=== PATIENT | female | born 1980 | race Caucasian/White ===

== ENCOUNTER 2016-10-06 03:55 | Inpatient (IN) ==
[2016-10-06] MEDS ORDERED: LR 1,000 ML ONE ×3 (08:03→13:37)
[2016-10-06] MEDS ORDERED: PEPCID ONE (08:20)
[2016-10-06 08:24] LABS: HEMATOCRIT 43.9 % (37.0-47.0); HEMOGLOBIN 14.8 g/dL (12.0-16.0); MCH 30.6 PG (27-31); MCHC 33.7 g/dL (33-37); MCV 90.9 FL (81-99); MPV 9.1 FL (7.4-10.4); RBC 4.83 XMIL (4.2-5.4)
--- NOTE | 2016-10-06 08:24 | EKG Report ---
Test Performed on : 10/06/2016 07:58:44 AM Test Reason : preop Blood Pressure : / mmHG Vent. Rate : 075 BPM Atrial Rate : 075 BPM P-R Int : 148 ms QRS Dur : 100 ms QT Int : 408 ms P-R-T Axes : 061 053 030 degrees QTc Int : 455 ms Normal sinus rhythm. Normal ECG No previous ECGs available Confirmed by Vickey Spencer MD ([id number]) on 10/06/2016 9:08:47 AM
[2016-10-06 08:59] LABS: AGAP 19; BUN 17 mg/dL (8-22); CALCIUM 9.1 mg/dL (8.8-10.2); CHLORIDE 97 mmol/L (98-107); COSMO 282; POTASSIUM 4.7 mmol/L (3.5-5.1); SODIUM 138 mmol/L (136-145); TCO2 22 mmol/L (25-35)
[2016-10-06] MEDS ORDERED: KEFZOL 2 GM/D5W 2 GM/50 ML IVPB ONE (09:02)
[2016-10-06] MEDS ORDERED: FENTANYL ONE (10:48)
[2016-10-06] MEDS ORDERED: DIPRIVAN 1% ONE (10:48)
[2016-10-06] MEDS ORDERED: NS 1,000 ML ONE (11:20)
[2016-10-06] MEDS ORDERED: ZOFRAN IV PRN (13:03)
[2016-10-06] MEDS ORDERED: PERICOLACE PO PRN (13:03)
[2016-10-06] MEDS: NS 1,000 ML IV SCH (13:09)
[2016-10-06] MEDS ORDERED: NEOSTIGMINE ONE (13:36)
[2016-10-06] MEDS ORDERED: XYLOCAINE-MPF 2% ONE (13:37)
[2016-10-06] MEDS ORDERED: ZEMURON ONE (13:37)
[2016-10-06] MEDS ORDERED: ANESTHESIA PB SET 88 IN 5742 ONE (13:37)
[2016-10-06] MEDS ORDERED: ROBINUL ONE (13:37)
[2016-10-06] MEDS ORDERED: QUELICIN (DOSE) ONE (13:37)
[2016-10-06] MEDS ORDERED: ZOFRAN ONE (13:37)
[2016-10-06] MEDS ORDERED: VANCOMYCIN IV PER PHARMACY MISC SCH (13:45)
[2016-10-06] MEDS: GLUCOTROL PO SCH ×2 (14:02→14:03)
[2016-10-06] MEDS: MORPHINE IV PRN ×2 (14:07→19:33)
[2016-10-06] MEDS: ZOSYN 3.375 GM/NS 3.375 GM/50 ML IVPB IV SCH ×2 (14:09→22:16)
[2016-10-06 14:13] LABS: HDL 45 mg/dL (45-65); LDL 106 mg/dL; TRIGLYCERIDES 57 mg/dL (35-135); VLDL 11 mg/dL
[2016-10-06 14:14] LABS: HEMOGLOBIN A1C 8.1 % (4.8-6.0)
[2016-10-06 14:48] LABS: TOTAL BILIRUBIN 0.14 mg/dL (0.20-1.00); TOTAL PROTEIN 8.3 g/dL (6.3-8.3)
[2016-10-06] MEDS ORDERED: VANCOMYCIN 2,100 MG in NS 500 ML IV ONE (15:00)
[2016-10-06] MEDS: OXY IR PO PRN ×2 (15:30→18:41)
--- NOTE | 2016-10-06 15:41 | OPERATIVE NOTE ---
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 PROCEDURE: 1. Right transmetatarsal revision amputation. 2. Right irrigation, debridement to bone. SURGEON: Gerardo Kendrick MD RAG GRADER: SUBHA Rajput ANESTHESIA: General with LMA. IMPLANTS: None. TOURNIQUET TIME: Around 45 minutes. SPECIMENS: Multiple cultures were obtained and sent off to Pathology and for culture. WOUND CLOSURE: Wound VAC was placed. DISPOSITION: To PACU, hemodynamically stable. INDICATION FOR PROCEDURE: Ms. Gann, 35-year-old female, who I first saw this past in [facility]. She had a transmetatarsal amputation at another facility [place] a different state. She came in here. She is about a month out from her procedure. It started to drain, started to get very red on her as well and she was placed on Keflex by her physician who performed the procedure. Then since she moved out of state, she was seeking treatment here. So I discussed with her that I think it was very infected and so I would recommend at that time irrigation and debridement and a little bit of revision of the amputation with debridement of the skin and possibly even resection of some more of the bones. After I went over everything with her, she wanted to go ahead and proceed with surgery. DESCRIPTION OF PROCEDURE: Ms. Gann was identified in the preop holding area. The right foot was marked as the correct surgical site. She was then wheeled to the operating room, placed supine on the operating table. All bony prominences were well padded. She was induced under general anesthesia. LMA was placed. Tourniquet placed to the right thigh. Right lower extremity was then prepped with Betadine scrub and draped in normal sterile fashion. Surgical pause was performed. We identified the correct patient, the correct side, and the correct procedure. Preop antibiotics were given, which was IV Ancef. The leg was elevated a little bit to allow exsanguination and then tourniquet inflated to 300 mmHg. Total tourniquet time was around 45 minutes. I removed all of the sutures out of the foot. There was a tract right in the very center that did open up all the way to bone and it looked like it actually went into more of the 2nd metatarsal. So I opened up almost all of the incision and used a big curette and curetted a lot of the devitalized tissue out. There was not any abscess seen at all and then used a rongeur and cleaned up a lot of the tissue with the rongeur as well. The lateral metatarsals looked like they had begin the already scar together and so I did debride some of the ends of those with a rongeur and resect just a little bit of bone from the 3rd, 4th, 5th, not a lot. The 2nd though, looked like it had a little more devitalized tissue around and so took a good bit more of the 2nd metatarsal back and I sent it off to Pathology and for culture. We took cultures deep in the wound as well at that time and sent some all for tissue culture as well. The 1st metatarsal debrided it back some and then there were 2 small open areas medially. I took the curette and debrided those out and then used a rongeur as well. We then assessed our debridement. At this point, all tissue actually looked very vital. I did not really see any devitalized tissue at this point, because we had taken the skin, subcutaneous, some muscle, and bone as well, really almost doing a revision transmetatarsal amputation. I then irrigated everything copiously with normal saline until everything was nice and clean appearing. After this, I used 2 nylon and approximated a little bit of the skin edges. We left a little bit of an open more on the medial aspect and then we used a wound VAC and I ended using the sponge and put it down in that medial part to keep that area open so that it could granulate from the inside out. I then used a little bit of an incisional VAC over the rest of the wound however, I hooked it to suction and we had a good seal. Then a soft roll and Bossman were then placed. Tourniquet was let down. The patient had good capillary refill good at the edge of the wound. We did have a lot of bleeding coming out of the wound VAC either. She was then awoken from general anesthesia, moved to her own bed and taken to the PACU in stable condition. Postop, get Infectious Disease involved. I am going to consult the hospitalist as well for glucose management since her A1c has been around and she will be kept on IV Ancef and we will follow her cultures until she grows something out and we can change antibiotics at that point. cc: Gerardo Kendrick MD
[2016-10-06] MEDS ORDERED: INSULIN PEN NEEDLES ONE (15:58)
[2016-10-06] MEDS ORDERED: GLUCOPHAGE PO SCH (17:00)
[2016-10-06] MEDS: NICODERM PATCH TD SCH (17:40)
[2016-10-06] MEDS: ATIVAN PO SCH (17:43)
[2016-10-06] MEDS: HUMALOG SUBQ SCH ×2 (17:44→22:22)
[2016-10-06] MEDS: NEURONTIN PO SCH (17:44)
[2016-10-06] MEDS: KEFZOL 1 GM/D5W 1 GM/50 ML IVPB IV SCH (17:45)
[2016-10-06] MEDS ORDERED: PNEUMOVAX 23 IM ONE (19:15)
--- NOTE | 2016-10-06 21:22 | CONSULTATION ---
DATE OF CONSULTATION: 10/06/2016 REFERRING PHYSICIAN: Gerardo Kendrick MD CONSULTING PHYSICIAN: Wil Willis MD CONSULTING REASON: Medical management. CHIEF COMPLAINT: Right foot pain. HISTORY OF PRESENT ILLNESS: Ms. Gnan is a 35-year-old, female with a history of poorly controlled diabetes mellitus, obesity, hyperlipidemia and diabetic neuropathy who was admitted for incision and drainage/debridement of right foot diabetic ulcer by Dr. Kendrick. Surgery was performed today without any complication. She is currently resting in bed, complaining of some mild incisional pain. Otherwise, she denies any acute complaints. Prior to surgery she has had no chest pain or shortness of breath. No lower extremity edema. We have been asked to follow along for medical management. PAST MEDICAL HISTORY: 1. Poorly controlled diabetes. 2. Diabetic neuropathy. 3. Bipolar disorder. 4. Paranoid schizophrenia. 5. Chronic pain. 6. Hyperlipidemia. SURGICAL HISTORY: Amputation of the great toe of the right foot, cholecystectomy, partial hysterectomy. SOCIAL HISTORY: Patient smokes a pack a day. She has recently moved back to [place] from [place]. She is and has 2 children. FAMILY HISTORY: Mother with congestive heart failure. Father is still living. He has a history of severe coronary disease. REVIEW OF SYSTEMS: Fourteen-point review of systems obtained and found to be negative with the exception of the HPI. HOME MEDICATIONS: Neurontin 600 mg p.o. t.i.d., glipizide 5 mg daily, Lantus 15 units at bedtime, Ativan 1 mg t.i.d., Glucophage 1000 mg t.i.d., Actos 15 mg daily, Zocor 20 mg at bedtime, Desyrel 300 mg p.o. at bedtime, Geodon 40 mg p.o. b.i.d. ALLERGIES: Zofran and tramadol. PHYSICAL EXAMINATION: Vital Signs: Blood pressure is 130/72, heart rate 77, respiratory rate 18, O2 saturation 100% on 2 L. Temperature is 98 degrees. General: This is an obese female, lying in hospital bed in no acute distress. Neurologic: The patient is awake, alert, and oriented. She follows commands without focal deficits. HEENT: Head is atraumatic, normocephalic. Pupils equal, round, reactive to light. Oral mucosa is moist. Trachea is midline. No JVD. No carotid bruits. Chest: Clear to auscultation bilaterally. CARDIOVASCULAR: Regular rate and rhythm. S1-S2 is noted. No murmurs, gallops, clicks, rubs. GI: Soft, nondistended, nontender. Bowel sounds positive. Extremities: Right lower extremity with surgical dressing, clean, dry and intact with wound VAC functioning properly. Left lower extremity without edema, clubbing or cyanosis. Pulses are palpable bilaterally. DIAGNOSTIC DATA: WBC 13.36, hemoglobin 14.8, hematocrit 43.9, platelet count 443,000. Sodium 138, potassium 4.7, chloride 97, CO2 22, anion gap 19, BUN 17, creatinine 0.7, glucose 191, hemoglobin A1c 8.1, TSH 6.79. ASSESSMENT AND PLAN: 1. Right foot diabetic ulcer: Per Dr. Kendrick and his team, we have ordered blood cultures and lactic acid as well as started broad-spectrum antibiotics. He has consulted Dr. Montes as well. We will also make sure she is on IV fluids. 2. Early sepsis: We will obtain blood cultures, surgical wound cultures have been obtained. We have started vancomycin and Zosyn. Dr. Montes has been consulted. We are checking lactic acid as well. 3. Diabetes mellitus: Hemoglobin A1c reveals poor control. We will stop her metformin for now. Add pattern blood sugars and sliding scale insulin. Continue her Lantus at night and monitor her blood sugars, continue diabetic education. 4. Nicotine dependence: We have advised the patient to quit smoking. We will write a nicotine patch and continue daily cessation education. 5. Deep venous thrombosis prophylaxis is being provided with Lovenox. Further recommendations to follow. Would like to thank you for this consultation. We will continue to follow along with you. Dictated by TITA Stevens for Wil Willis MD cc: TITA Stevens MD Justin Daigre, MD
[2016-10-06] MEDS: GEODON PO SCH (22:17)
[2016-10-06] MEDS: PERIDEX MT SCH (22:17)
[2016-10-06] MEDS: DESYREL PO SCH (22:17)
[2016-10-06] MEDS: ZOCOR PO SCH (22:18)
[2016-10-06] MEDS: LANTUS SUBQ SCH (22:23)
[2016-10-06] MEDS: PHENERGAN IV PRN (22:29)
--- NOTE | 2016-10-06 22:44 | CONSULTATION ---
DATE OF CONSULTATION: 10/06/2016 CONCLUSION: The patient is status post revision of an infected right transmetatarsal amputation. At surgery, there was found to be evidence of osteomyelitis. Gram stain taken at surgery shows gram positive cocci in the infected area. RECOMMENDATIONS: I agree with putting the patient on vancomycin and Zosyn, pending culture results. DISCUSSION: The patient told me that she had a right transmetatarsal amputation performed somewhere else. The wound became infected, manifested by pain, erythema, swelling and purulent drainage. She underwent surgery on that foot today, by Dr. Kendrick. The patient's laboratory studies show a CBC with a white count of 13,360, hemoglobin 14.8, and platelet count 443,000. Creatinine is 0.7. GFR is greater than 60. The liver function tests are normal, except for an alkaline phosphatase, which is slightly elevated at 129. PAST MEDICAL HISTORY/REVIEW OF SYSTEMS: Eyes and ears: The patient wears glasses. Her hearing is normal. Neck: No stiffness. Respiratory: No cough or shortness of breath. GI: No nausea, vomiting, or diarrhea. cardiovascular: No chest pain or palpations. Endocrine: The patient has diabetes but not thyroid disease. Neurologic: The patient does not have any motor or sensory loss. She is not having any seizures. Genitourinary: No dysuria or flank pain. Integument: No rashes. The remainder of the patient's review of systems was completed and was negative. FAMILY LAW ATTORNEY HISTORY: She is a 7, para 4, AB 3. She has had a hysterectomy. PREVIOUS HOSPITALIZATIONS AND OPERATIONS: She has had labor and deliveries, 3 miscarriages, and a hysterectomy, as well as, a cholecystectomy. MEDICAL DISEASES: Positive for diabetes mellitus, obesity and hyperlipidemia. INFECTIOUS DISEASE HISTORY: Positive for UTI. Negative for pneumonia. FAMILY HISTORY: Positive for diabetes mellitus, hypertension, myocardial infarction. SOCIAL HISTORY: [place] She smoke cigarettes. She does not drink alcohol or abuse drugs. She is single. She does not have any pets. She does not have a job. ALLERGIES: She has an allergy to ondansetron and tramadol. HOME MEDICATIONS: Include the following: Insulin, glipizide, gabapentin, Geodon, Actos, Glucophage, lorazepam, Desyrel and Zocor. PHYSICAL EXAMINATION: Vital Signs: Temperature is 98, pulse 77, respirations 18, blood pressure 130/72. Patient weighs 211 pounds. General: This is an obese, young female. She is in no acute distress. Head, eyes, ears, nose, and throat: She can hear my spoken words and see near objects. No drainage noted from the nose or ears. Neck: No meningismus. Lungs: Clear to auscultation. Cardiovascular: Regular heart rate. Abdomen: Soft and nontender. Extremities: The patient had edema in both legs. There was a large dressing around the right foot. The dressing was intact. Neurologic: Patient is alert. She can move her extremities. There is no tremor. Her sensation is intact to touch. Her memory, as regarding her medical history, is intact. Thank you for the consult. cc: MD Gerardo Nichols MD
[2016-10-07] MEDS: MORPHINE IV PRN ×4 (01:04→18:10)
[2016-10-07] MEDS: KEFZOL 1 GM/D5W 1 GM/50 ML IVPB IV SCH (01:09)
[2016-10-07] MEDS: VANCOMYCIN 1,750 MG in NS 250 ML IV SCH ×2 (02:51→15:28)
[2016-10-07] MEDS: NS 1,000 ML IV SCH ×2 (02:57→17:27)
[2016-10-07] MEDS: PHENERGAN IV PRN ×3 (06:16→21:34)
[2016-10-07 06:17] LABS: INR 0.96
[2016-10-07] MEDS: LOVENOX SUBQ SCH (06:20)
[2016-10-07] MEDS: HUMALOG SUBQ SCH ×4 (06:21→21:35)
[2016-10-07] MEDS: ZOSYN 3.375 GM/NS 3.375 GM/50 ML IVPB IV SCH ×3 (06:25→17:03)
[2016-10-07 06:36] LABS: AGAP 10; BUN 13 mg/dL (8-22); CALCIUM 7.6 mg/dL (8.8-10.2); CHLORIDE 103 mmol/L (98-107); COSMO 281; POTASSIUM 4.2 mmol/L (3.5-5.1); SODIUM 139 mmol/L (136-145); TCO2 26 mmol/L (25-35)
[2016-10-07 06:46] LABS: HEMATOCRIT 34.8 % (37.0-47.0); HEMOGLOBIN 11.4 g/dL (12.0-16.0); MCH 30.8 PG (27-31); MCHC 32.8 g/dL (33-37); MCV 94.1 FL (81-99); MPV 9.2 FL (7.4-10.4); RBC 3.7 XMIL (4.2-5.4)
[2016-10-07] MEDS: NEURONTIN PO SCH ×3 (08:12→17:03)
[2016-10-07] MEDS: GLUCOTROL PO SCH (08:12)
[2016-10-07] MEDS: NICODERM PATCH TD SCH (08:12)
[2016-10-07] MEDS: ACTOS PO SCH (08:12)
[2016-10-07] MEDS: PERIDEX MT SCH ×2 (08:12→21:33)
[2016-10-07] MEDS: ATIVAN PO SCH ×3 (08:12→17:03)
[2016-10-07] MEDS: GEODON PO SCH ×2 (08:14→21:34)
[2016-10-07] MEDS ORDERED: NS 250 ML ONE (08:47)
[2016-10-07] MEDS ORDERED: INSULIN ASPART 15 UNIT SQ SCH (09:00)
--- NOTE | 2016-10-07 10:30 | PROGRESS NOTE ---
DATE: 10/07/2016 SUBJECTIVE: The patient is status post revision of an infected right transmetatarsal amputation with infection spreading to the bone and causing osteomyelitis. Thus, cultures are pending. MEDICATIONS: The patient is on vancomycin and Zosyn pending culture results. PHYSICAL EXAMINATION: Vital Signs: Temperature is 98.7 degrees, pulse 81, respirations 16, blood pressure 103/51. General: This is an obese young female. She is in no acute distress. She is having some pain from her right foot, but for the most part it is relieved with medication. Lungs: Clear to auscultation. Cardiovascular: Regular heart rate. Abdomen: Soft and nontender. Extremities: Patient has a large dressing around the right foot. The dressing is intact. LAB AND X-RAY: See dictation done on 11;17 AM. ASSESSMENT AND PLAN: The patient has an infection of her foot. I plan to continue with her current antibiotics pending culture results. Also, I am going to hold off putting in a PICC for the same reason that we do not have the final culture result. COMORBIDITIES: The patient's comorbidities include diabetes mellitus and obesity. cc: MD Gerardo Nichols MD MTDD
[2016-10-07] MEDS ORDERED: KEFZOL 1 GM/D5W 1 GM/50 ML IVPB IV SCH (12:45)
--- NOTE | 2016-10-07 14:09 | PROGRESS NOTE ---
DATE: 10/07/2016 SUBJECTIVE: Ms. Gann is lying in bed this morning doing okay. Not really complaining of a lot of pain. She is postop day 1 from right transmetatarsal amputation revision and irrigation and debridement. OBJECTIVE: Right lower extremity exam. Wound VAC still intact. Dressing is clean, dry, and intact. There had not been a lot of output from the wound VAC. ASSESSMENT: Status post right transmetatarsal amputation revision and irrigation and debridement to bone. PLAN: We got Infectious Disease team consulted. The patient is on vancomycin and Zosyn right now. Hospitalist team is involved as well and we are going to tailor antibiotics depending on what all the cultures come back and show, so we are still following those right now. We will probably change the wound VAC on and take a look at the wound. cc: Gerardo Kendrick MD
[2016-10-07] MEDS: SODIUM CHLORIDE 0.9% INJ PRN ×2 (16:08→21:34)
[2016-10-07] MEDS: OXY IR PO PRN (16:09)
--- NOTE | 2016-10-07 16:45 | PROGRESS NOTE ---
DATE: 10/07/2016 SUBJECTIVE: The patient says that she is feeling better. She is complaining of generalized weakness. Her right foot is covered with a dressing and has a wound VAC. She is complaining of right lower extremity pain. OBJECTIVE: Vital Signs: Temperature 97.7 degrees, pulse 79, respiratory rate 20, blood pressure 112/64, oxygen saturation 100% on room air. HEENT: Head normocephalic. No trauma. PERRLA. Neck supple. No JVD. No masses. Central trachea. Chest clear to auscultation. No wheezing. No rales. Cardiovascular: RRR. No murmurs. Abdomen is soft, nontender, nondistended. No hepatosplenomegaly. Obese. Extremities: No edema. No clubbing. Right lower extremity with a surgical dressing that looks clean and wound VAC functioning properly. LABORATORY: WBC 10.2, hemoglobin 11.4, hematocrit 34.8, platelets 349,000. Sodium 139, potassium 4.2, chloride 103, bicarbonate 26. BUN 13, creatinine 0.7, glucose 165. Calcium 7.6. ASSESSMENT AND PLAN: 1. Right side diabetic foot, status post right transmetatarsal amputation, revision, and irrigation and debridement to bone. Continue with the same antibiotics. Infectious disease department is following this patient. We have a positive result for gram-positive cocci pending sensitivity. We will continue to monitor. 2. Type 2 diabetes, that is poor control. Her hemoglobin A1c is 8.1. Her sugar in house has been stable. We will continue with the same management. 3. Nicotine dependence. We have advised the patient to quit smoking. I will continue with daily cessation education and nicotine patch. 4. Deep venous thrombosis prophylaxis. Continue with Lovenox. 5. Bipolar disorder and paranoid schizophrenia, aware. Continue monitoring and treatment. cc: MD Gerardo Amador MD
[2016-10-07] MEDS: DESYREL PO SCH (21:33)
[2016-10-07] MEDS: LANTUS SUBQ SCH (21:34)
[2016-10-07] MEDS: ZOCOR PO SCH (21:34)
[2016-10-08] MEDS: ZOSYN 3.375 GM/NS 3.375 GM/50 ML IVPB IV SCH ×3 (01:07→11:37)
[2016-10-08] MEDS: MORPHINE IV PRN ×6 (01:52→20:17)
[2016-10-08] MEDS: VANCOMYCIN 1,750 MG in NS 250 ML IV SCH ×2 (01:52→04:24)
[2016-10-08] MEDS: PHENERGAN IV PRN ×3 (05:05→20:17)
[2016-10-08] MEDS: SODIUM CHLORIDE 0.9% INJ PRN ×2 (05:05→13:36)
[2016-10-08] MEDS: LOVENOX SUBQ SCH (05:06)
[2016-10-08] MEDS: OXY IR PO PRN ×2 (05:06→17:31)
[2016-10-08] MEDS: NS 1,000 ML IV SCH (05:06)
[2016-10-08] MEDS: HUMALOG SUBQ SCH ×4 (06:12→22:18)
--- NOTE | 2016-10-08 08:20 | PROGRESS NOTE ---
DATE: 10/08/2016 SUBJECTIVE: Ms. Gann is postop day 2 from an irrigation and debridement of the right foot wound and revision transmetatarsal amputation. She is resting in bed this morning fairly well. Not a lot of drainage out from the wound VAC overnight. OBJECTIVE: Right Lower Extremity Examination: Dressing is clean, dry, and intact. Wound VAC is intact as well. ASSESSMENT: 1. Right transmetatarsal amputation revision. 2. Right incision and drainage of foot. PLAN: Ms. Gann grew out MRSA from her wounds. Infectious disease is on board and will help tailor antibiotics. It looks like she has already got a PICC line established as well. We will plan on changing the wound VAC tomorrow and take a look at the wound, and see how everything is responding. cc: MD Manish Pierce MD
[2016-10-08 08:43] LABS: AGAP 9; BUN 11 mg/dL (8-22); CALCIUM 7.8 mg/dL (8.8-10.2); CHLORIDE 104 mmol/L (98-107); COSMO 277; POTASSIUM 3.9 mmol/L (3.5-5.1); SODIUM 138 mmol/L (136-145); TCO2 25 mmol/L (25-35)
[2016-10-08 08:50] LABS: HEMATOCRIT 33.8 % (37.0-47.0); HEMOGLOBIN 11.3 g/dL (12.0-16.0); MCH 30.9 PG (27-31); MCHC 33.4 g/dL (33-37); MCV 92.3 FL (81-99); MPV 9.4 FL (7.4-10.4); RBC 3.66 XMIL (4.2-5.4)
[2016-10-08] MEDS: PERIDEX MT SCH ×2 (09:05→20:17)
[2016-10-08] MEDS: NICODERM PATCH TD SCH (09:05)
[2016-10-08] MEDS: GLUCOTROL PO SCH (09:05)
[2016-10-08] MEDS: ATIVAN PO SCH ×3 (09:05→22:17)
[2016-10-08] MEDS: ACTOS PO SCH (09:05)
[2016-10-08] MEDS: NEURONTIN PO SCH ×3 (09:05→20:17)
[2016-10-08] MEDS: GEODON PO SCH ×2 (09:05→20:17)
--- NOTE | 2016-10-08 12:16 | PROGRESS NOTE ---
DATE: 10/08/2016 SUBJECTIVE: This patient states that she is feeling better, but she is complaining about pain. Her right foot is covered with a surgical dressing and has a wound VAC. She denies nausea or vomiting. No diarrhea. No constipation. No chest pain. No shortness of breath. OBJECTIVE: Vital Signs: Temperature 98.0 degrees, pulse 69, respiratory rate 20, blood pressure 127/73, and oxygen saturation 98% on room air. HEENT: Head normocephalic. No trauma. PERRLA. Neck: Supple. No JVD. No masses. Central trachea. Chest: Clear to auscultation. No wheezing. No rales. Abdomen: Soft, nontender, nondistended. No hepatosplenomegaly. Obese. Cardiovascular: RRR. No murmurs. Extremities: No edema. No clubbing. Right lower extremity with a surgical dressing that looks clean, and wound VAC functioning properly. LABORATORY: WBC 8.3, hemoglobin 11.3, hematocrit 33.8, platelets 343,000. Sodium 138, potassium 3.9, chloride 104, bicarbonate 25, BUN 11, creatinine 0.6, glucose 132, calcium 7.8, magnesium 1.6. ASSESSMENT AND PLAN: 1. Right side diabetic foot status post right transmetatarsal amputation, revision, irrigation, and debridement to bone. Continue with the same medications. She has a positive culture that showed Methicillin-resistant Staphylococcus Methicillin-resistant Staphylococcus aureus. She is on vancomycin. Infectious Disease Department is following this patient. 2. Type 2 diabetes. Continue with the same management. The blood sugar has been under control. 3. Nicotine dependence. This patient has been highly advised against tobacco abuse. I will continue with daily cessation education. 4. Bipolar disorder and paranoid schizophrenia. Aware. Continue monitoring and treatment. cc: Manish Bose MD
--- NOTE | 2016-10-08 14:13 | PROGRESS NOTE ---
DATE: 10/07/2016 ADDENDUM: LABORATORY DATA AND X-RAY: Today, the patient's CBC shows a white count of 10,280. Hemoglobin 11.4 and platelet count of 349,000. Patient's creatinine is 0.7. The GFR is greater than 60. The cultures taken yesterday by Dr. Kendrick are growing gram positive cocci which has not been identified as of yet. There is no new radiographic study. cc: MD Gerardo Nichols MD
--- NOTE | 2016-10-08 16:00 | PROGRESS NOTE ---
DATE: 10/08/2016 PRESENT ILLNESS: The patient is status post revision of an infected right transmetatarsal amputation. The infection did spread to bone causing osteomyelitis. The cultures taken from the foot are growing methicillin-resistant Staph aureus, and another one is growing gram-positive cocci which I think will almost certainly be identified as the same organism, i.e. methicillin-resistant Staph aureus. MEDICATIONS: The patient is on vancomycin and Zosyn. PHYSICAL EXAMINATION: Vital Signs: Temperature is 98 degrees, pulse 69, respirations 20, blood pressure 127/73. General: This is an obese, young female, who is in no acute distress. Lungs: Clear to auscultation. Cardiovascular: Regular heart rate. Abdomen: Soft and nontender. Extremities: The patient has the same dressing around her right foot. She has a VAC in place. Tomorrow it is my understanding the dressing will be changed. The right arm has a PICC in it. The PICC site is not swollen. The patient's right foot is as mentioned above. LAB AND X-RAY: Today the patient's CBC showed a white count of 8320, hemoglobin 11.3, and platelet count 343,000. Creatinine is 0.6. GFR is greater than 60. A culture from the right foot grew methicillin-resistant Staph aureus, and another culture is growing a gram-positive coccus that almost certainly will be identified as the same organism, namely methicillin-resistant Staph aureus. DISPOSITION: The patient already has a PICC in. I plan today to consult [facility] to supply the patient's home IV antibiotic. I will be seeing the patient back in my office in 4 weeks and then again at 8 weeks, at which time we will stop her antibiotics. COMORBIDITY: Diabetes mellitus cc: MD Manish Nichols MD MTDD
[2016-10-08] MEDS: VANCOMYCIN 1,900 MG in NS 500 ML IV SCH (16:52)
[2016-10-08] MEDS: DESYREL PO SCH (20:16)
[2016-10-08] MEDS: ZOCOR PO SCH (20:16)
[2016-10-08] MEDS: LANTUS SUBQ SCH (22:17)
[2016-10-09] MEDS: VANCOMYCIN 1,900 MG in NS 500 ML IV SCH ×2 (03:32→18:19)
[2016-10-09] MEDS: PHENERGAN IV PRN ×4 (03:56→23:49)
[2016-10-09] MEDS: MORPHINE IV PRN ×5 (03:56→23:50)
[2016-10-09] MEDS: LOVENOX SUBQ SCH (05:23)
[2016-10-09] MEDS: HUMALOG SUBQ SCH ×4 (06:01→23:44)
[2016-10-09 07:48] LABS: MANUAL DIFF NEEDED? NO
[2016-10-09 07:54] LABS: BASO% 0.4 % (0.0-0.8); EOS# 0.26 X1000 (0.0-0.7); EOS% 3.5 % (0.0-10.0); HEMATOCRIT 34.6 % (37.0-47.0); HEMOGLOBIN 11.4 g/dL (12.0-16.0); IMM GRAN# 0.03 X1000 (0.0-0.04); IMM GRAN% 0.4 % (0.0-0.5); LYMPH# 1.58 X1000 (1.2-3.4); MCH 30.7 PG (27-31); MCHC 32.9 g/dL (33-37); MCV 93.3 FL (81-99); MONO# 0.63 X1000 (0.11-0.59); MONO% 8.4 % (1.7-9.3); MPV 9.4 FL (7.4-10.4); NEUT% 66.3 % (42.2-75.2); PLT 332 X1000 (130-400); RBC 3.71 XMIL (4.2-5.4)
[2016-10-09 09:16] LABS: AGAP 13; BUN 18 mg/dL (8-22); CHLORIDE 102 mmol/L (98-107); COSMO 285; POTASSIUM 4.3 mmol/L (3.5-5.1); SODIUM 140 mmol/L (136-145); TCO2 25 mmol/L (25-35)
[2016-10-09] MEDS: NICODERM PATCH TD SCH (10:25)
[2016-10-09] MEDS: OXY IR PO PRN ×2 (10:25→13:17)
[2016-10-09] MEDS: ACTOS PO SCH (10:25)
[2016-10-09] MEDS: ATIVAN PO SCH ×3 (10:25→18:19)
[2016-10-09] MEDS: GEODON PO SCH ×2 (10:25→23:47)
[2016-10-09] MEDS: GLUCOTROL PO SCH (10:25)
[2016-10-09] MEDS: PERIDEX MT SCH ×2 (10:25→23:49)
[2016-10-09] MEDS: NEURONTIN PO SCH ×3 (10:25→18:19)
[2016-10-09] MEDS: SODIUM CHLORIDE 0.9% INJ PRN ×2 (11:09→17:09)
--- NOTE | 2016-10-09 14:57 | PROGRESS NOTE ---
DATE: 10/09/2016 PRESENT ILLNESS: The patient is status post revision of an infected right transmetatarsal amputation. Cultures taken from the foot are growing methicillin-resistant Staphylococcus aureus and, in addition, Serratia marcescens has been isolated from the foot also. MEDICATIONS: The patient currently is on vancomycin. PHYSICAL EXAMINATION: Vital Signs: Temperature is 97.6 degrees, pulse 79, respirations 20, blood pressure 122/67. General: This is an obese, young female. She is in no acute distress. Lungs: Clear to auscultation. Cardiovascular: Regular heart rate. Abdomen: Soft and nontender. Extremities: The right foot has a VAC on it. This was changed earlier. The nurse told me that the tissues appeared pink and were not purulent or necrotic. The patient has a PICC in her right arm. The PICC site is not erythematous or swollen. LABORATORY AND X-RAY: The patient's CBC for today shows a white count of 7510, hemoglobin 11.4, and platelet count 332,000. Creatinine is 0.7. GFR is greater than 60. The culture from the foot grew methicillin-resistant Staphylococcus aureus and Serratia marcescens. ASSESSMENT AND PLAN: The patient had an infection of the foot which extended to the bone. Therefore, she had osteomyelitis. This was debrided at surgery. I still think she should be covered and treated as if she still could have some osteomyelitis present. Therefore, I plan to treat her for 8 weeks with the combination of vancomycin and Levaquin. I will be seeing the patient in my office in 4 weeks and then again at 8 weeks, at which time we will stop her antibiotics and take out her PICC. COMORBIDITIES: The patient's comorbidity is diabetes mellitus. [facility] is going to be supplying the patient's home IV antibiotic and she will be going home with a VAC on her foot also. cc: MD Manish Nichols MD
[2016-10-09] MEDS ORDERED: ROCEPHIN 2 GM/NS 2 GM/50 ML IVPB IV SCH (15:00)
--- NOTE | 2016-10-09 15:27 | PROGRESS NOTE ---
DATE: 10/09/2016 SUBJECTIVE: This patient states that she is feeling better. She is still complaining about right foot pain, but compared with yesterday is much better. Her surgeon evaluated this patient and they put a new dressing on her foot. She is still on wound VAC. She denies nausea, vomiting, diarrhea, constipation. No chest pain. No shortness of breath. OBJECTIVE: Vital Signs: Temperature 97.9 degrees, pulse 82, respiratory rate 20, blood pressure 118/62, oxygen saturation 98 on room air. HEENT: Head normocephalic. No trauma. PERRLA. Neck: Supple. No JVD. No masses. Central trachea. Chest: Clear to auscultation. No wheezing. No rales. Abdomen: Soft, nontender, nondistended. No hepatosplenomegaly. Obese. Cardiovascular: RRR. No murmurs. Extremities: No edema. No clubbing. Right lower extremity with a surgical dressing that looks clean and wound VAC is functioning properly. LABORATORY: WBC 7.5, hemoglobin 11.4, hematocrit 34.6, platelets 332. Sodium 140, potassium 4.3, chloride 102, bicarbonate 25, BUN 18, creatinine 0.7, glucose 174, calcium 8, magnesium 1.5. ASSESSMENT AND PLAN: 1. Right side diabetic foot, status post right transmetatarsal amputation, revision, irrigation and debridement to bone. Continue with the same medications. She has a positive culture that showed methicillin-resistant Staphylococcus aureus. Infectious Disease Department has ordered a PICC line that was already placed. Will be hopefully discharged very soon with intravenous medications, and follow up with her surgeon and Dr. Montes. 2. Type 2 diabetes. Continue with the same management. The blood sugar has been controlled. 3. Nicotine dependence. This patient has been highly advised against tobacco abuse. I will continue with daily cessation education. 4. Bipolar disorder and paranoid schizophrenia. Aware. Continue monitoring and treatment. cc: Manish Bose MD
--- NOTE | 2016-10-09 15:33 | PROGRESS NOTE ---
DATE: 10/09/2016 ADDENDUM: I had ordered that the patient be sent home on Levaquin to treat the Serratia marcescens isolated from her foot. However, there are a number of drug interactions with Levaquin and some of the medications that the patient already is taking. Therefore, I have changed from Levaquin to Rocephin 2 g IV daily for 55 days, which will be given along with vancomycin. cc: MD Manish Nichols MD
--- NOTE | 2016-10-09 15:59 | PROGRESS NOTE ---
DATE: 10/09/2016 SUBJECTIVE: Ms. Gann is resting in bed today, feeling okay overall. OBJECTIVE: Right lower extremity exam, we took the wound VAC off in the room today. She was a little bit of erythema around the dorsum of the foot, but it does seem to be a little better. Overall, not a lot of drainage at all from the end of the wound. ASSESSMENT: Status post right transmetatarsal amputation, revision and irrigation debridement. PLAN: Ms. Gann is going to continue on IV antibiotics per the Infectious Disease team. She is going to get her wound VAC changed 3 times a week. She can be weightbearing on her heel only and once IV antibiotics and everything are set up and the wound VAC changes are all set up per home health, then I am okay with her being discharged. I would like to see her in a week in clinic. cc: MD Manish Pierce MD
[2016-10-09] MEDS: NS 1,000 ML IV SCH ×2 (18:11→23:41)
[2016-10-09] MEDS: LANTUS SUBQ SCH (23:46)
[2016-10-09] MEDS: ZOCOR PO SCH (23:47)
[2016-10-09] MEDS: DESYREL PO SCH (23:58)
[2016-10-10] MEDS: OXY IR PO PRN (01:28)
[2016-10-10] MEDS: VANCOMYCIN 1,900 MG in NS 500 ML IV SCH (04:21)
[2016-10-10] MEDS: MORPHINE IV PRN ×5 (05:06→15:37)
[2016-10-10] MEDS: LOVENOX SUBQ SCH (05:50)
[2016-10-10] MEDS: HUMALOG SUBQ SCH ×2 (06:10→11:34)
[2016-10-10 07:03] LABS: MANUAL DIFF NEEDED? NO
[2016-10-10 07:09] LABS: BASO% 0.4 % (0.0-0.8); EOS# 0.26 X1000 (0.0-0.7); EOS% 3.2 % (0.0-10.0); HEMATOCRIT 33.6 % (37.0-47.0); HEMOGLOBIN 11.2 g/dL (12.0-16.0); IMM GRAN# 0.04 X1000 (0.0-0.04); IMM GRAN% 0.5 % (0.0-0.5); LYMPH# 1.85 X1000 (1.2-3.4); LYMPH% 22.8 % (20.5-51.1); MCH 30.5 PG (27-31); MCHC 33.3 g/dL (33-37); MCV 91.6 FL (81-99); MONO# 0.63 X1000 (0.11-0.59); MONO% 7.8 % (1.7-9.3); MPV 9.3 FL (7.4-10.4); NEUT% 65.3 % (42.2-75.2); PLT 304 X1000 (130-400); RBC 3.67 XMIL (4.2-5.4)
--- NOTE | 2016-10-10 07:23 | PROGRESS NOTE ---
DATE: 10/10/2016 SUBJECTIVE: Ms. Gann is resting in bed and well this morning. Her wound VAC was changed yesterday at bedside. She has been doing fairly well overall. OBJECTIVE: Right Lower Extremity Exam: Wound VAC is clean, dry, and intact. The surrounding erythema has improved. ASSESSMENT: Right infected foot status-post transmetatarsal amputation and revision and incision and drainage. PLAN: The plan is to hopefully try to get Ms. Gann discharged today. We will need to get all of her antibiotics set up for home discharge. She will also need a script for a knee scooter and I will see her on in [facility]. cc: MD Manish Pierce MD
[2016-10-10 07:36] LABS: AGAP 9; BUN 16 mg/dL (8-22); CALCIUM 7.8 mg/dL (8.8-10.2); CHLORIDE 104 mmol/L (98-107); COSMO 280; POTASSIUM 3.9 mmol/L (3.5-5.1); SODIUM 138 mmol/L (136-145); TCO2 25 mmol/L (25-35)
[2016-10-10] MEDS: SODIUM CHLORIDE 0.9% INJ PRN ×2 (07:58→14:06)
[2016-10-10] MEDS: PHENERGAN IV PRN ×2 (07:58→14:06)
[2016-10-10] MEDS: NICODERM PATCH TD SCH (10:01)
[2016-10-10] MEDS: ACTOS PO SCH (10:02)
[2016-10-10] MEDS: PERIDEX MT SCH (10:02)
[2016-10-10] MEDS: ATIVAN PO SCH ×2 (10:03→14:00)
[2016-10-10] MEDS: GEODON PO SCH (10:03)
[2016-10-10] MEDS: NEURONTIN PO SCH ×2 (10:03→14:01)
[2016-10-10] MEDS: GLUCOTROL PO SCH (10:03)
[2016-10-10 10:18] VITALS: BP 122/71
[2016-10-10] MEDS ORDERED: NORCO-5 PO PRN (10:26)
--- NOTE | 2016-10-10 17:47 | DISCHARGE SUMMARY ---
ADMISSION DATE: 10/06/2016 DISCHARGE DATE: 10/10/2016 DISCHARGE DIAGNOSES: 1. Right-sided diabetic foot status post right transmetatarsal amputation, revision, irrigation and debridement to bone. 2. Type 2 diabetes. 3. Nicotine dependence. 4. Peripheral neuropathy. 5. Bipolar disorder. 6. Paranoid schizophrenia. SURGEON: Gerardo Kendrick MD. HOSPITAL COURSE: A 35-year-old, female with a past medical history of poorly controlled diabetes mellitus, obesity, diabetic neuropathy, admitted on 10/06/2016 to perform a drainage/debridement of right foot diabetic ulcer by Dr. Kendrick. Surgery was performed on 10/06/[address] Kendrick performed a transmetatarsal amputation/revision/irrigation/debridement to bone, then the patient was transferred to the medical floor. Previously she started treatment with antibiotics, broad spectrum, and she has been followed closely by Infectious Disease Department. She was placed on wound VAC machine. She has a positive culture of the lesion that showed MRSA, a PICC line had been ordered and placed, and will continue with intravenous medications. The patient was improving on a daily basis. Dr. Montes from Infectious Disease Department has recommended to use Levaquin and Rocephin 2 g IV daily for 55 days which will be given along with vancomycin. The patient will be discharged with followup by her primary care doctor, Dr. Kendrick, and Dr. Montes. OBJECTIVE: Vital Signs: Temperature 97.4 degrees, pulse 66, respiratory rate 17, blood pressure 122/71, oxygen saturation 93 on room air. HEENT: Head normocephalic. No trauma. PERRLA. Neck: Supple. No JVD. No masses. Central trachea. Chest: Clear to auscultation. No wheezing. No rales. Abdomen: Soft, nontender, nondistended. No hepatosplenomegaly. Obese. Extremities: Right lower extremity with surgical dressing that looks clean and wound VAC is functioning properly. Neurological examination: The patient is alert and oriented x3. No focal neurological deficits. LABORATORY: WBC 8.1, hemoglobin 11.2, hematocrit 33.6, platelets 304,000. Sodium 138, potassium 3.9, chloride 104, bicarbonate 25, BUN 16, creatinine 0.6, glucose 156, calcium 7.8. DISCHARGE MEDICATIONS: 1. [place] 5, 1 tablet p.o. q.6 hours p.r.n. 2. Ceftriaxone 2 g daily that will be given by [facility]. 3. Neurontin 600 mg p.o. t.i.d. 4. Glipizide 5 mg p.o. daily. 5. Lantus 15 units subcutaneous at bedtime. 6. Ativan 1 mg p.o. t.i.d. 7. Actos 15 mg p.o. daily. 8. Eri-Colace 1 tablet p.o. b.i.d. p.r.n. 9. Trazodone 300 mg p.o. at bedtime. 10. Vancomycin IV as well. FOLLOWUP: 1. Followup with Dr. Kendrick next . 2. Followup with Dr. Montes in 1-2 weeks. 3. Followup with her primary care doctor in 1 week. cc: Manish Bose MD
--- NOTE | 2016-11-03 16:22 | PROGRESS NOTE ---
DATE: 11/03/2016 The patient was getting IV antibiotics through her PICC. The PICC came out and the patient did not want any further IV antibiotics but did agree to have oral antibiotics until she sees me in the office on November 11. I called in to [facility] the following. Doxycycline 100 mg p.o. and ciprofloxacin 500 mg p.o. both to be taken every 12 hours for 7 days. I called this to the [facility] at [phone]. Patient previously grew from her right foot methicillin- resistant Staph aureus and Serratia marcescens. cc: MD Manish Nichols MD
== END 2016-10-10 15:58 | disposition home health service (06) ==
LOC: SURHOLD 03:55 → 4N 11:06 → 3N 10-08 18:31
PROVIDERS: ADMIT Internal Medicine; ATTEND Orthopaedic Surgery